=== PATIENT | female | born 1970 | race Hispanic/Latino ===

== ENCOUNTER 2023-10-13 06:47 | Day surgery (SDC) | payer OTHER ==
[2023-10-09 12:20] LABS: BASOPHILS # (AUTO) 0.02 K/uL (0.00-0.20); BASOPHILS % (AUTO) 0.4 % (0.0-5.0); EOSINOPHILS # (AUTO) 0.05 K/uL (0.00-0.70); EOSINOPHILS % (AUTO) 0.9 % (0.0-8.0); HEMATOCRIT 45.3 % (36-48); IMMATURE GRANULOCYTE ABSOLUTE 0.02 K/uL (0-1); LYMPHOCYTES # (AUTO) 1.8 K/uL (1.0-4.8); LYMPHOCYTES % (AUTO) 32.3 % (21.0-51.0); MEAN CORPUSCULAR HEMOGLOBIN 28.8 pg (27.0-33.0); MEAN CORPUSCULAR HGB CONC 33.3 g/dL (32.0-36.0); MEAN CORPUSCULAR VOLUME 86.3 fL (79-99); MONOCYTES # (AUTO) 0.3 K/uL (0.1-1.0); MONOCYTES % (AUTO) 5.3 % (3.0-13.0); NEUTROPHILS # (AUTO) 3.4 K/uL (1.8-7.7); NEUTROPHILS % (AUTO) 60.7 % (40.0-77.0); PLATELET COUNT (AUTO) 251 K/uL (130-400); RED BLOOD CELL COUNT(AUTO) 5.25 MIL/uL (4.00-5.50); RED CELL DISTRIBUTION WIDTH 12.9 % (11.0-15.5); WHITE BLOOD COUNT (AUTO) 5.6 K/uL (4.8-10.8)
[2023-10-09 12:22] VITALS: BP 119/76; PULSE 67; RESP 17
[~2023-10-13] VITALS: Ht 154.9 cm; Wt 69.9 kg
[2023-10-13] VITALS (18 sets, daily range): BP systolic 118–150; BP diastolic 56–83; PULSE 58–105; RESP 13–18
[~2023-10-13 06:47] MED LIST: BRIM2.5D OU; LEVO75CA5 PO
[2023-10-13] MEDS ORDERED: PROPOFOL 10 MG/ML 20ML VIAL IV ONE (08:00)
[2023-10-13] MEDS ORDERED: MIDAZOLAM HCL 1 MG/ML 2ML VIAL ONE (08:00)
[2023-10-13] MEDS ORDERED: ROCURONIUM BROMIDE 10MG/1ML 5ML VL ONE (08:00)
[2023-10-13] MEDS ORDERED: ONDANSETRON 4MG INJ ONE (08:00)
[2023-10-13] MEDS ORDERED: FENTANYL CITRATE PF 50 MCG/1 ML 2ML VIAL ONE ×2 (08:01→09:36)
[2023-10-13] MEDS: 0.9%NACL 1000ML 1,000 ML IV ONE (08:19)
[2023-10-13] MEDS: INDOCYANINE GREEN 25 MG VIAL IJ ONE (08:20)
[2023-10-13] MEDS: CEFAZOLIN SODIUM 2 GM VIAL ONE (08:20)
[2023-10-13] MEDS: BUPIVACAINE/PF 0.25% 30ML VIAL IJ ONE (08:30)
[2023-10-13] MEDS ORDERED: PHENYLEPHRINE HCL 10 MG/ML 1ML VIAL IV ONE (08:52)
[2023-10-13] MEDS ORDERED: KETOROLAC 30MG VIAL (30MG/ML) ONE (09:38)
[2023-10-13] MEDS ORDERED: NEOSTIGMINE METHYLSULFATE 1MG/ML IV ONE (09:48)
[2023-10-13] MEDS ORDERED: GLYCOPYRROLATE 0.2 MG/ML 5 ML VIAL ONE (09:48)
[2023-10-13] MEDS: MEPERIDINE-PF 25 MG/ML SYG ONE (10:45)
== END 2023-10-13 11:37 | disposition home or self-care (01) ==
LOC: DAH 06:47
PROVIDERS: ATTEND Surgery
DX: K80.10 Calculus of gallbladder with chronic cholecystitis without obstruction (principal); K82.8 Other specified diseases of gallbladder; E03.9 Hypothyroidism, unspecified; Z79.899 Other long term (current) drug therapy; Z79.890 Hormone replacement therapy
CPT/HCPCS: 47562; S2900; 36415; 82948; 85025; 88304; J1885; J2175; J2250; J2371; J2405; J2704; J2710; J3010; J3490; J7030; A4215; A4221; A4222; A4223; A4600; A4649; A4663; A4930; A6206; A6260; C1769; J0665; J0690